=== PATIENT | male | born 1955 | race African-American/Black ===

== ENCOUNTER 2018-07-22 20:55 | Inpatient (IN) | payer MEDICARE, OTHER ==
[~2018-07-22] VITALS: Ht 185.4 cm; Wt 112.5 kg
[2018-07-22] MEDS ORDERED: PIPERACILLIN/TAZ 3.375G PREMIX 50 ML IV ONE (21:30)
[2018-07-22] MEDS ORDERED: LEVOFLOXACIN 750MG PREMIX 150 ML IV ONE (21:30)
[2018-07-22] MEDS ORDERED: ACETAMINOPHEN 650MG SUPP PR ONE (21:30)
[2018-07-22] MEDS ORDERED: VANCOMYCIN 1 G PREMIX 200 ML IV ONE (21:30)
[2018-07-22] MEDS ORDERED: ACETAMINOPHEN 325MG SUPP PR ONE (21:30)
[2018-07-22] MEDS ORDERED: SODIUM CHLORIDE 0.9% 1000ML BAG (SEPSIS BOLUS) IV ONE (21:30)
[2018-07-22 22:23] LABS: CLARITY URINE CLEAR (CLEAR); COLOR URINE DARK YELLOW (YELLOW); KETONES URINE 1+ (NEGATIVE); LEUKOCYTE ESTERASE URINE NEGATIVE (NEGATIVE); NITRITE URINE NEGATIVE (NEGATIVE); OCCULT BLOOD URINE 1+ (NEGATIVE); PROTEIN URINE 3+ (NEGATIVE)
[2018-07-22 23:14] LABS: CHLORIDE 96 mEq/L (98-107)
[2018-07-22 23:19] LABS: ETHANOL BLOOD < 10 mg/dL
[2018-07-23 00:01] LABS: HEMATOCRIT. 27.4 % (42.0-52.0); HEMOGLOBIN. 9.1 g/dL (14.0-18.0); MEAN CORPUSCULAR HEMOGLOBIN 37.1 pg (28.0-32.0); MEAN CORPUSCULAR VOLUME 111.5 fL (80.0-94.0); MEAN PLATELET VOLUME 7.6 fl (7.4-10.4); RED BLOOD CELL COUNT 2.46 mill/uL (4.7-6.1); RED CELL DISTRIBUTION WIDTH 26.3 % (11.6-14.6)
[2018-07-23 00:05] LABS: PLATELET 33 x1000/uL (130-400)
[2018-07-23 00:27] LABS: INR 1.4; PROTHROMBIN TIME 13.6 sec (9.1-11.1)
[2018-07-23] MEDS ORDERED: METHYLPREDNISOLONE SOD SUCC 40 MG/ML VIAL IV SCH ×2 (03:30→13:30)
[2018-07-23] MEDS ORDERED: MAGNESIUM/ALUMINUM HYDROXIDE/SIMETHICONE 30ML UDC PO PRN (03:30)
[2018-07-23] MEDS ORDERED: ONDANSETRON HCL 4MG/2ML INJ IV PRN (03:30)
[2018-07-23] MEDS ORDERED: IPRATROPIUM/ALBUTEROL 0.5-3(2.5)MG/3ML NEB INH PRN (03:30)
[2018-07-23] MEDS ORDERED: GUAIFENESIN 200MG/10ML SUGAR FREE UDC PO PRN (03:30)
[2018-07-23 04:15] LABS: PHOSPHORUS 2.7 mg/dL (2.5-4.9)
[2018-07-23] MEDS ORDERED: VANCOMYCIN 1 G PREMIX 200 ML IV SCH (05:00)
[2018-07-23 05:23] LABS: PLATELET ESTIMATE DECREASED
[2018-07-23] MEDS: SODIUM CHLORIDE 0.9% 1,000 ML IV SCH ×2 (05:31→14:35)
[2018-07-23] MEDS: ACETAMINOPHEN 650MG SUPP PR PRN ×3 (05:32→17:48)
[2018-07-23] MEDS ORDERED: POTASSIUM CHLORIDE INJ 40 MEQ in DEXT 5% WATER 250 ML IV SCH (06:00)
[2018-07-23] MEDS ORDERED: DEXTROSE 50% WATER 50ML SYRINGE IV PRN (13:30)
[2018-07-23 14:00] VITALS: BP 168/80
[2018-07-23] MEDS ORDERED: INSULIN GLARGINE UD 100 UNITS/ML SYR SUBCUT NR (15:00)
[2018-07-23] MEDS ORDERED: LEVOFLOXACIN 500MG PREMIX 100 ML IV SCH (15:30)
[2018-07-23] MEDS ORDERED: MAGNESIUM 4 G PREMIX 100 ML IV NR (15:30)
[2018-07-23 16:00] VITALS: BP 152/63
[2018-07-23] MEDS: IPRATROPIUM/ALBUTEROL 0.5-3(2.5)MG/3ML NEB HHN SCH ×2 (16:00→22:18)
[2018-07-23 16:50] VITALS: BP 146/74
[2018-07-23] MEDS: BLOOD SUGAR DIAGNOSTIC STRIP TEST SCH ×2 (17:29→21:00)
[2018-07-23] MEDS: VANCOMYCIN 1500MG in DEXTROSE 5% WATER 250ML IV SCH (17:48)
[2018-07-23] MEDS: CEFEPIME 2,000 MG in DEXT 5% WATER 100 ML IV SCH (17:48)
[2018-07-23] MEDS: INSULIN LISPRO 100 UNITS/ML SUBCUT SCH ×2 (17:54→23:45)
[2018-07-23 18:00] VITALS: BP 145/79
[2018-07-23] MEDS ORDERED: PIPERACILLIN/TAZ 3.375G PREMIX 50 ML IV SCH (18:00)
[2018-07-23 20:00] VITALS: BP 144/76
[2018-07-23] MEDS: ACETAMINOPHEN 325MG TABLET PO PRN (21:02)
[2018-07-23 22:00] VITALS: BP 140/68
[2018-07-23] MEDS: INSULIN GLARGINE UD 100 UNITS/ML SYR SUBCUT SCH (23:44)
[2018-07-24] VITALS (12 sets, daily range): BP systolic 119–155; BP diastolic 53–75
[2018-07-24] MEDS: SODIUM CHLORIDE 0.9% 1,000 ML IV SCH ×2 (00:04→21:17)
[2018-07-24] MEDS: IPRATROPIUM/ALBUTEROL 0.5-3(2.5)MG/3ML NEB HHN SCH ×6 (00:44→21:36)
[2018-07-24] MEDS: VANCOMYCIN 1500MG in DEXTROSE 5% WATER 250ML IV SCH (04:10)
[2018-07-24] MEDS: CEFEPIME 2,000 MG in DEXT 5% WATER 100 ML IV SCH ×2 (05:09→17:45)
[2018-07-24] MEDS: ACETAMINOPHEN 325MG TABLET PO PRN (05:09)
[2018-07-24 07:14] LABS: CHLORIDE 100 mEq/L (98-107)
[2018-07-24 07:25] LABS: T4 FREE 1.15 ng/dL (0.76-1.46)
[2018-07-24] MEDS: BLOOD SUGAR DIAGNOSTIC STRIP TEST SCH ×4 (07:47→21:17)
[2018-07-24 08:05] LABS: CREATINE KINASE 10422 IU/L (39-308)
[2018-07-24] MEDS: METHYLPREDNISOLONE SOD SUCC 125 MG/2 ML VIAL IV SCH (08:14)
[2018-07-24] MEDS: INSULIN LISPRO 100 UNITS/ML SUBCUT SCH ×4 (08:14→22:33)
[2018-07-24] MEDS: INSULIN GLARGINE UD 100 UNITS/ML SYR SUBCUT SCH ×2 (10:19→22:33)
[2018-07-24] MEDS ORDERED: POTASSIUM CHLORIDE INJ 40 MEQ in DEXT 5% WATER 250 ML IV NR (11:00)
[2018-07-24 11:22] LABS: HEMATOCRIT. 23.7 % (42.0-52.0); MEAN CORPUSCULAR HEMOGLOBIN 36.1 pg (28.0-32.0); MEAN CORPUSCULAR VOLUME 106.8 fL (80.0-94.0); RED BLOOD CELL COUNT 2.21 mill/uL (4.7-6.1); RED CELL DISTRIBUTION WIDTH 26.2 % (11.6-14.6)
[2018-07-24 12:18] LABS: PLATELET ESTIMATE MARKEDLY DECREASED
[2018-07-24] MEDS: VANCOMYCIN 1250MG in DEXTROSE 5% WATER 250ML IV SCH ×2 (16:14→21:16)
[2018-07-24] MEDS: DIPHENHYDRAMINE 50MG/ML VIAL IV PRN (21:39)
[2018-07-25] VITALS (10 sets, daily range): BP systolic 125–175; BP diastolic 54–85
[2018-07-25] MEDS: IPRATROPIUM/ALBUTEROL 0.5-3(2.5)MG/3ML NEB HHN SCH ×6 (00:51→20:14)
[2018-07-25] MEDS: CEFEPIME 2,000 MG in DEXT 5% WATER 100 ML IV SCH ×2 (04:38→17:05)
[2018-07-25] MEDS: VANCOMYCIN 1250MG in DEXTROSE 5% WATER 250ML IV SCH ×3 (05:48→20:54)
[2018-07-25] MEDS: SODIUM CHLORIDE 0.9% 1,000 ML IV SCH (06:57)
[2018-07-25] MEDS: BLOOD SUGAR DIAGNOSTIC STRIP TEST SCH ×4 (07:30→20:14)
[2018-07-25] MEDS: INSULIN LISPRO 100 UNITS/ML SUBCUT SCH ×4 (08:08→21:00)
[2018-07-25] MEDS: METHYLPREDNISOLONE SOD SUCC 125 MG/2 ML VIAL IV SCH (08:08)
[2018-07-25] MEDS ORDERED: IOHEXOL-300 100 ML BOTTLE ONE (10:37)
[2018-07-25] MEDS: INSULIN GLARGINE UD 100 UNITS/ML SYR SUBCUT SCH ×2 (12:21→20:48)
[2018-07-25] MEDS ORDERED: METHYLPREDNISOLONE SOD SUCC 125 MG/2 ML VIAL IV NR (16:30)
[2018-07-25 19:42] LABS: CHLORIDE 100 mEq/L (98-107)
[2018-07-25 20:23] LABS: CREATINE KINASE 12018 IU/L (39-308)
[2018-07-25] MEDS ORDERED: INSULIN LISPRO 100 UNITS/ML SUBCUT NR (20:45)
[2018-07-25] MEDS: DIPHENHYDRAMINE 50MG/ML VIAL IV PRN (20:54)
[2018-07-25] MEDS ORDERED: INSULIN GLARGINE UD 100 UNITS/ML SYR SUBCUT NR (22:00)
[2018-07-26] VITALS (10 sets, daily range): BP systolic 133–180; BP diastolic 61–97
[2018-07-26] MEDS: SODIUM CHLORIDE 0.9% 1,000 ML IV SCH ×2 (02:55→15:16)
[2018-07-26] MEDS: IPRATROPIUM/ALBUTEROL 0.5-3(2.5)MG/3ML NEB HHN SCH ×6 (04:00→20:29)
[2018-07-26] MEDS: DIPHENHYDRAMINE 50MG/ML VIAL IV PRN (04:04)
[2018-07-26] MEDS: CEFEPIME 2,000 MG in DEXT 5% WATER 100 ML IV SCH (06:14)
[2018-07-26] MEDS: VANCOMYCIN 1250MG in DEXTROSE 5% WATER 250ML IV SCH ×2 (06:15→15:16)
[2018-07-26 06:40] LABS: BASOPHILS % 0.5 % (0.0-2.0); LYMPHOCYTES % 8.1 % (20.0-50.0); MEAN CORPUSCULAR HEMOGLOBIN 36.4 pg (28.0-32.0); MEAN CORPUSCULAR VOLUME 107.2 fL (80.0-94.0); MONOCYTES % 12.2 % (2.0-8.0); NEUTROPHILS % 79.2 % (40.0-76.0); RED BLOOD CELL COUNT 1.86 mill/uL (4.7-6.1); RED CELL DISTRIBUTION WIDTH 26.8 % (11.6-14.6)
[2018-07-26 06:51] LABS: CHLORIDE 99 mEq/L (98-107)
[2018-07-26 07:54] LABS: CREATINE KINASE 7058 IU/L (39-308)
[2018-07-26 08:10] LABS: HEMOGLOBIN. 6.8 g/dL (14.0-18.0); PLATELET 16 x1000/uL (130-400)
[2018-07-26 08:13] LABS: NEUTROPHILS % 7.8 % (40.0-76.0)
[2018-07-26] MEDS: BLOOD SUGAR DIAGNOSTIC STRIP TEST SCH ×4 (08:14→21:09)
[2018-07-26 08:18] LABS: PLATELET 14 x1000/uL (130-400)
[2018-07-26 08:54] LABS: PLATELET ESTIMATE MARKEDLY DECREASED
[2018-07-26] MEDS: INSULIN LISPRO 100 UNITS/ML SUBCUT SCH ×4 (08:56→21:16)
[2018-07-26] MEDS: METHYLPREDNISOLONE SOD SUCC 125 MG/2 ML VIAL IV SCH (08:57)
[2018-07-26] MEDS: INSULIN GLARGINE UD 100 UNITS/ML SYR SUBCUT SCH (10:30)
[2018-07-26] MEDS ORDERED: INSULIN GLARGINE UD 100 UNITS/ML SYR SUBCUT SCH ×2 (22:00)
[2018-07-27] VITALS (15 sets, daily range): BP systolic 131–169; BP diastolic 68–96
[2018-07-27] MEDS: IPRATROPIUM/ALBUTEROL 0.5-3(2.5)MG/3ML NEB HHN SCH ×6 (00:27→20:00)
[2018-07-27] MEDS: SODIUM CHLORIDE 0.9% 1,000 ML IV SCH ×3 (00:38→16:42)
[2018-07-27 06:07] LABS: MEAN CORPUSCULAR HEMOGLOBIN 36.9 pg (28.0-32.0); MEAN CORPUSCULAR VOLUME 106.1 fL (80.0-94.0); MEAN PLATELET VOLUME 7.9 fl (7.4-10.4); RED BLOOD CELL COUNT 1.71 mill/uL (4.7-6.1)
[2018-07-27 06:37] LABS: CREATINE KINASE 6323 IU/L (39-308)
[2018-07-27 06:55] LABS: HEMATOCRIT. 18.1 % (42.0-52.0); HEMOGLOBIN. 6.3 g/dL (14.0-18.0); PLATELET 30 x1000/uL (130-400)
[2018-07-27] MEDS: INSULIN LISPRO 100 UNITS/ML SUBCUT SCH ×4 (08:00→21:10)
[2018-07-27] MEDS: BLOOD SUGAR DIAGNOSTIC STRIP TEST SCH ×4 (08:46→21:02)
[2018-07-27] MEDS: METHYLPREDNISOLONE SOD SUCC 125 MG/2 ML VIAL IV SCH (10:25)
[2018-07-27] MEDS: INSULIN GLARGINE UD 100 UNITS/ML SYR SUBCUT SCH (10:26)
[2018-07-27 10:32] LABS: PLATELET ESTIMATE MARKEDLY DECREASED
[2018-07-27 13:48] LABS: TOTAL IRON BINDING CAPACITY 154 ug/dL (250-450)
[2018-07-27] MEDS ORDERED: INSULIN GLARGINE UD 100 UNITS/ML SYR SUBCUT SCH (22:00)
[2018-07-27] MEDS ORDERED: HYDRALAZINE 20MG/ML VIAL IV PRN (22:30)
[2018-07-27] MEDS: AMLODIPINE 10MG TABLET PO SCH (22:52)
[2018-07-27] MEDS: CARVEDILOL 6.25 MG TABLET PO SCH (22:53)
[2018-07-28] VITALS: BP 158/89
[2018-07-28] MEDS: IPRATROPIUM/ALBUTEROL 0.5-3(2.5)MG/3ML NEB HHN SCH ×3 (00:11→08:20)
[2018-07-28] MEDS: SODIUM CHLORIDE 0.9% 1,000 ML IV SCH ×2 (00:21→06:33)
[2018-07-28 02:00] VITALS: BP 162/79
[2018-07-28 04:00] VITALS: BP 147/69
[2018-07-28 06:00] VITALS: BP 126/76
[2018-07-28] MEDS: BLOOD SUGAR DIAGNOSTIC STRIP TEST SCH (07:30)
[2018-07-28 07:59] LABS: MEAN CORPUSCULAR HEMOGLOBIN 36.1 pg (28.0-32.0); MEAN CORPUSCULAR VOLUME 107.3 fL (80.0-94.0); RED BLOOD CELL COUNT 1.65 mill/uL (4.7-6.1)
[2018-07-28] MEDS: INSULIN LISPRO 100 UNITS/ML SUBCUT SCH (08:00)
[2018-07-28 08:12] LABS: HEMATOCRIT 17.7 % (42.0-52.0)
[2018-07-28] MEDS: METHYLPREDNISOLONE SOD SUCC 125 MG/2 ML VIAL IV SCH ×2 (09:00→10:05)
[2018-07-28] MEDS: AMLODIPINE 10MG TABLET PO SCH (10:06)
[2018-07-28] MEDS: CARVEDILOL 6.25 MG TABLET PO SCH (10:07)
[2018-07-28 11:16] LABS: PLATELET 45 x1000/uL (130-400)
[2018-07-28 12:59] VITALS: BP 137/69
[2018-08-02] MEDS ORDERED: TAM75 MT (15:26)
== END 2018-07-28 13:30 | disposition home or self-care (01) | DRG 557 ==
LOC: ER 20:55 → 5EST 07-23 02:16 → EDBEDREQDT 07-23 02:18 → EDBEDREQTM 07-23 02:18 → EDBEDREQ 07-23 02:18 → ENRESERV 07-23 11:38
PROVIDERS: ADMIT Internal Medicine; ATTEND Internal Medicine
DX: M62.82 Rhabdomyolysis (principal); G93.41 Metabolic encephalopathy; E87.1 Hypo-osmolality and hyponatremia; R65.10 Systemic inflammatory response syndrome (SIRS) of non-infectious origin without acute organ dysfunction; L03.90 Cellulitis, unspecified; E87.6 Hypokalemia; D69.6 Thrombocytopenia, unspecified; I10 Essential (primary) hypertension; E11.65 Type 2 diabetes mellitus with hyperglycemia; G89.29 Other chronic pain; M54.5 Low back pain; D46.9 Myelodysplastic syndrome, unspecified; K52.9 Noninfective gastroenteritis and colitis, unspecified; E66.01 Morbid (severe) obesity due to excess calories; F03.90 Unspecified dementia, unspecified severity, without behavioral disturbance, psychotic disturbance, mood disturbance, and anxiety; I25.10 Atherosclerotic heart disease of native coronary artery without angina pectoris; J45.909 Unspecified asthma, uncomplicated; K21.9 Gastro-esophageal reflux disease without esophagitis; Q92.8 Other specified trisomies and partial trisomies of autosomes; Z79.52 Long term (current) use of systemic steroids; Z68.32 Body mass index [BMI] 32.0-32.9, adult
CPT/HCPCS: 36415; 71045; 71250; 73701; 74176; 80048; 80202; 80320; 82550; 82607; 82746; 82962; 83540; 83550; 83605; 83615; 83735; 84100; 84145; 84439; 84443; 84484; 85027; 87015; 87045; 87427; 87449; 87493; 87804; 93005; 93970; 96374; 97162; 97166; 99285; J0692; J1200; J1815; J1956; J2543; J2920; J2930; J3370; J3475; J3480; J7030; J7042; J7060; J7620; Q9967; G0480

== ENCOUNTER 2018-07-31 01:28 | Inpatient (IN) | payer MEDICARE, OTHER ==
[~2018-07-31] VITALS: Ht 182.9 cm; Wt 112.5 kg
[2018-07-31] MEDS ORDERED: IPRATROPIUM/ALBUTEROL 0.5-3(2.5)MG/3ML NEB HHN ONE ×2 (02:00→04:00)
[2018-07-31 02:48] LABS: CHLORIDE 100 mEq/L (98-107)
[2018-07-31 02:50] LABS: INR 1.2; PARTIAL THROMBOPLASTIN TIME 24.6 sec (23.4-31.0); PROTHROMBIN TIME 11.7 sec (9.1-11.1)
[2018-07-31 02:52] LABS: ETHANOL BLOOD < 10 mg/dL
[2018-07-31 02:53] LABS: HEMATOCRIT. 25.9 % (42.0-52.0); HEMOGLOBIN. 8.8 g/dL (14.0-18.0); MEAN CORPUSCULAR HEMOGLOBIN 35.5 pg (28.0-32.0); MEAN CORPUSCULAR VOLUME 104.5 fL (80.0-94.0); MEAN PLATELET VOLUME 6.4 fl (7.4-10.4); PLATELET 168 x1000/uL (130-400); RED BLOOD CELL COUNT 2.48 mill/uL (4.7-6.1); RED CELL DISTRIBUTION WIDTH 25.5 % (11.6-14.6)
[2018-07-31] MEDS ORDERED: METHYLPREDNISOLONE SOD SUCC 125 MG/2 ML VIAL IV STA (03:57)
[2018-07-31] MEDS ORDERED: MAGNESIUM 2 G PREMIX 50 ML IV ONE (04:00)
[2018-07-31] MEDS ORDERED: ASPIRIN 325MG EC TABLET PO ONE (04:00)
[2018-07-31 04:28] LABS: ATYPICAL LYMPHOCYTES 1; PLATELET ESTIMATE NORMAL
[2018-07-31 05:32] LABS: BG BASE EXCESS 5.2 mmol/L (-2.0-2.0); BG CARBOXYHEMOGLOBIN 0.3 % (0.5-1.5); BG FRACTION INSPIRED OXYGEN 32; BG HCO3 ACT 29.1 mmol/L (22.0-26.0); BG OXYHEMOGLOBIN 96.7 % (94.0-97.0); BG PCO2 40.1 mmHg (35.0-45.0); BG PH 7.479 (7.350-7.450); BG PO2 98.8 mmHg (75.0-100.0); BG SAMPLE SITE RIGHT RADIAL; BG VENT MODE NASAL CANNULA
[2018-07-31] MEDS ORDERED: AMLODIPINE 10MG TABLET PO NR (05:45)
[2018-07-31] MEDS ORDERED: ACETAMINOPHEN 325MG TABLET PO NR (05:45)
[2018-07-31 06:13] LABS: CLARITY URINE CLEAR (CLEAR); COLOR URINE YELLOW (YELLOW); KETONES URINE NEGATIVE (NEGATIVE); LEUKOCYTE ESTERASE URINE NEGATIVE (NEGATIVE); NITRITE URINE NEGATIVE (NEGATIVE); OCCULT BLOOD URINE NEGATIVE (NEGATIVE); PROTEIN URINE NEGATIVE (NEGATIVE); SPECIFIC GRAVITY URINE 1.016 (1.005-1.030); UROBILINOGEN URINE 0.2 E.U./dL (0.2-1.0)
[2018-07-31 06:29] LABS: *AMPHETAMINES SCREEN URINE NEGATIVE (NEGATIVE); *BARBITURATES SCREEN URINE NEGATIVE (NEGATIVE); *BENZODIAZEPINES SCREEN URINE NEGATIVE (NEGATIVE); *COCAINE SCREEN URINE NEGATIVE (NEGATIVE); METHADONE URINE SCREEN NEGATIVE (NEGATIVE)
[2018-07-31 06:30] LABS: CANNABINOID URINE SCREEN NEGATIVE (NEGATIVE); OPIATES URINE SCREEN NEGATIVE (NEGATIVE); PHENCYCLIDINE URINE SCREEN NEGATIVE (NEGATIVE)
[2018-07-31 08:00] VITALS: BP 154/77
[2018-07-31 08:30] VITALS: BP 154/77
[2018-07-31] MEDS ORDERED: P20 PO (09:09)
[2018-07-31] MEDS ORDERED: AMLO10TA80 PO (09:09)
[2018-07-31] MEDS ORDERED: COR6 PO (09:14)
[2018-07-31] MEDS ORDERED: PANT40TA4 PO (09:14)
[2018-07-31] MEDS ORDERED: MOME0.24 INH (09:14)
[2018-07-31] MEDS ORDERED: TAMS0.4C31 PO (09:14)
[2018-07-31] MEDS ORDERED: CALC-586 PO (09:15)
[2018-07-31] MEDS ORDERED: POSA100T MT (09:18)
[2018-07-31] MEDS ORDERED: CLONIDINE 0.1MG TABLET PO PRN (09:30)
[2018-07-31] MEDS ORDERED: DIPHENHYDRAMINE 50MG/ML VIAL IV PRN (09:30)
[2018-07-31] MEDS ORDERED: NA PHOS,M-B/NA PHOS,DI-BA ENEMA 118ML PR PRN (09:30)
[2018-07-31] MEDS ORDERED: ONDANSETRON HCL 4MG/2ML INJ IV PRN (09:30)
[2018-07-31] MEDS ORDERED: DOCUSATE SODIUM 100MG CAPSULE PO PRN (09:30)
[2018-07-31] MEDS ORDERED: MAGNESIUM/ALUMINUM HYDROXIDE/SIMETHICONE 30ML UDC PO PRN (09:30)
[2018-07-31] MEDS ORDERED: DEXTROSE 50% WATER 50ML SYRINGE IV PRN (09:30)
[2018-07-31] MEDS ORDERED: ACETAMINOPHEN 650MG/20.3ML UDC GT PRN (09:30)
[2018-07-31] MEDS ORDERED: ACETAMINOPHEN 650MG SUPP PR PRN (09:30)
[2018-07-31] MEDS ORDERED: ACETAMINOPHEN 325MG TABLET PO PRN (09:30)
[2018-07-31] MEDS ORDERED: GUAIFENESIN 200MG/10ML SUGAR FREE UDC PO PRN (09:30)
[2018-07-31] MEDS ORDERED: HYDROCODONE/ACETAMINOPHEN 5/325MG TABLET PO PRN (09:30)
[2018-07-31] MEDS: IPRATROPIUM/ALBUTEROL 0.5-3(2.5)MG/3ML NEB INH PRN ×2 (11:42→16:07)
[2018-07-31 12:00] VITALS: BP 142/65
[2018-07-31] MEDS: IPRATROPIUM/ALBUTEROL 0.5-3(2.5)MG/3ML NEB INH SCH (12:00)
[2018-07-31 12:05] LABS: BG BASE EXCESS 3.6 mmol/L (-2.0-2.0); BG CARBOXYHEMOGLOBIN 0.3 % (0.5-1.5); BG DEOXYHEMOGLOBIN 4.1 % (0.0-5.0); BG HCO3 ACT 27.6 mmol/L (22.0-26.0); BG METHEMOGLOBIN 0.7 % (0.0-1.5); BG OXYGEN SATURATION 95.9 % (92.0-98.5); BG OXYHEMOGLOBIN 94.9 % (94.0-97.0); BG PCO2 39.1 mmHg (35.0-45.0); BG PH 7.466 (7.350-7.450); BG PO2 90.8 mmHg (75.0-100.0); BG SAMPLE SITE RIGHT RADIAL; BG TOTAL HEMOGLOBIN 7.5 g/dL (12.0-18.0); BG VENT MODE NASAL CANNULA
[2018-07-31] MEDS ORDERED: INSULIN LISPRO 100 UNITS/ML SUBCUT SCH ×2 (12:15→17:15)
[2018-07-31] MEDS: BLOOD SUGAR DIAGNOSTIC STRIP TEST SCH ×3 (12:30→21:13)
[2018-07-31] MEDS: CEFTRIAXONE 1 G PREMIX 50 ML IV SCH (12:50)
[2018-07-31] MEDS: INSULIN LISPRO 100 UNITS/ML SUBCUT SCH ×3 (12:51→21:12)
[2018-07-31] MEDS: SODIUM CHLORIDE 0.9% INJ 3ML FLUSH IVF SCH ×2 (14:00→21:12)
[2018-07-31 15:41] LABS: CLARITY URINE CLEAR (CLEAR); COLOR URINE YELLOW (YELLOW); KETONES URINE NEGATIVE (NEGATIVE); LEUKOCYTE ESTERASE URINE NEGATIVE (NEGATIVE); NITRITE URINE NEGATIVE (NEGATIVE); OCCULT BLOOD URINE TRACE (NEGATIVE); PH URINE 6.5 (4.5-8.0); PROTEIN URINE NEGATIVE (NEGATIVE); SPECIFIC GRAVITY URINE 1.017 (1.005-1.030); UROBILINOGEN URINE 0.2 E.U./dL (0.2-1.0)
[2018-07-31] MEDS: PANTOPRAZOLE 40MG DR TABLET PO SCH (15:57)
[2018-07-31] MEDS: METHYLPREDNISOLONE SOD SUCC 40 MG/ML VIAL IV SCH ×2 (15:57→21:12)
[2018-07-31 16:00] VITALS: BP 137/69
[2018-07-31 16:01] LABS: *AMPHETAMINES SCREEN URINE NEGATIVE (NEGATIVE); *BARBITURATES SCREEN URINE NEGATIVE (NEGATIVE); *BENZODIAZEPINES SCREEN URINE NEGATIVE (NEGATIVE); *COCAINE SCREEN URINE NEGATIVE (NEGATIVE)
[2018-07-31 16:03] LABS: CANNABINOID URINE SCREEN NEGATIVE (NEGATIVE); METHADONE URINE SCREEN NEGATIVE (NEGATIVE); OPIATES URINE SCREEN NEGATIVE (NEGATIVE); PHENCYCLIDINE URINE SCREEN NEGATIVE (NEGATIVE)
[2018-07-31] MEDS ORDERED: MEDICATION NOT ON FORMULARY EA (Pantoprazole Sodium 40 MG) PO SCH (16:45)
[2018-07-31 17:18] LABS: CREATINE KINASE MB FRACTION 1.4 ng/mL (0.5-3.6)
[2018-07-31] MEDS: OSELTAMIVIR 75MG CAPSULE PO SCH ×2 (17:57→21:12)
[2018-07-31] MEDS: CARVEDILOL 6.25 MG TABLET PO SCH (17:57)
[2018-07-31] MEDS: POSACONAZOLE 100 MG TABLET PO SCH (17:57)
[2018-07-31] MEDS: TAMSULOSIN HCL 0.4MG SR CAPSULE PO SCH (18:02)
[2018-07-31 20:00] VITALS: BP 142/73
[2018-07-31] MEDS ORDERED: POTASSIUM CHLORIDE 20MEQ TABLET SR PO NR (22:00)
[2018-08-01] VITALS: BP 137/64
[2018-08-01] MEDS: IPRATROPIUM/ALBUTEROL 0.5-3(2.5)MG/3ML NEB INH SCH ×5 (02:05→23:59)
[2018-08-01 04:00] VITALS: BP 156/77
[2018-08-01] MEDS: METHYLPREDNISOLONE SOD SUCC 40 MG/ML VIAL IV SCH ×4 (06:26→21:10)
[2018-08-01] MEDS: PANTOPRAZOLE 40MG DR TABLET PO SCH ×2 (06:26→17:36)
[2018-08-01] MEDS: INSULIN LISPRO 100 UNITS/ML SUBCUT SCH ×4 (06:27→21:11)
[2018-08-01] MEDS: SODIUM CHLORIDE 0.9% INJ 3ML FLUSH IVF SCH ×3 (06:27→21:11)
[2018-08-01] MEDS: BLOOD SUGAR DIAGNOSTIC STRIP TEST SCH ×4 (06:27→21:11)
[2018-08-01] MEDS: OSELTAMIVIR 75MG CAPSULE PO SCH ×2 (08:35→21:10)
[2018-08-01] MEDS: CARVEDILOL 6.25 MG TABLET PO SCH ×2 (08:35→17:39)
[2018-08-01] MEDS: PREDNISONE 20MG TABLET PO SCH (08:35)
[2018-08-01] MEDS: AMLODIPINE 10MG TABLET PO SCH (08:36)
[2018-08-01] MEDS: CEFTRIAXONE 1 G PREMIX 50 ML IV SCH (11:00)
[2018-08-01 12:00] VITALS: BP 149/70
[2018-08-01 16:00] VITALS: BP 124/66
[2018-08-01] MEDS: POSACONAZOLE 100 MG TABLET PO SCH (17:39)
[2018-08-01] MEDS: TAMSULOSIN HCL 0.4MG SR CAPSULE PO SCH (17:40)
[2018-08-01 20:00] VITALS: BP 115/63
[2018-08-02] VITALS (8 sets, daily range): BP systolic 103–152; BP diastolic 53–78
[2018-08-02] MEDS: IPRATROPIUM/ALBUTEROL 0.5-3(2.5)MG/3ML NEB INH SCH ×3 (03:41→15:02)
[2018-08-02] MEDS: METHYLPREDNISOLONE SOD SUCC 40 MG/ML VIAL IV SCH (06:30)
[2018-08-02] MEDS: PANTOPRAZOLE 40MG DR TABLET PO SCH ×2 (06:30→17:42)
[2018-08-02] MEDS: SODIUM CHLORIDE 0.9% INJ 3ML FLUSH IVF SCH ×2 (06:30→14:00)
[2018-08-02] MEDS: BLOOD SUGAR DIAGNOSTIC STRIP TEST SCH ×3 (06:30→16:45)
[2018-08-02] MEDS: INSULIN LISPRO 100 UNITS/ML SUBCUT SCH ×3 (06:31→17:15)
[2018-08-02] MEDS: CARVEDILOL 6.25 MG TABLET PO SCH ×2 (09:07→17:00)
[2018-08-02] MEDS: AMLODIPINE 10MG TABLET PO SCH (09:07)
[2018-08-02] MEDS: PREDNISONE 20MG TABLET PO SCH (09:08)
[2018-08-02] MEDS: OSELTAMIVIR 75MG CAPSULE PO SCH (09:08)
[2018-08-02] MEDS ORDERED: BUDESONIDE 0.5MG/2ML NEB HHN SCH (12:00)
[2018-08-02] MEDS ORDERED: LORATADINE 10MG TABLET PO SCH (12:00)
[2018-08-02] MEDS: CEFTRIAXONE 1 G PREMIX 50 ML IV SCH (13:42)
[2018-08-02] MEDS ORDERED: TAM75 MT (15:26)
[2018-08-02] MEDS: POSACONAZOLE 100 MG TABLET PO SCH (17:00)
[2018-08-02] MEDS: TAMSULOSIN HCL 0.4MG SR CAPSULE PO SCH (18:17)
== END 2018-08-02 20:13 | disposition home health service (06) | DRG 193 ==
LOC: ER 01:28 → 5WST 04:10 → EDBEDREQ 04:13 → EDBEDREQTM 04:13 → ENRESERV 08:00
PROVIDERS: ADMIT Family Medicine; ATTEND Family Medicine
DX: J10.1 Influenza due to other identified influenza virus with other respiratory manifestations (principal); J96.00 Acute respiratory failure, unspecified whether with hypoxia or hypercapnia; E87.2 Acidosis; C94.6 Myelodysplastic disease, not elsewhere classified; R65.10 Systemic inflammatory response syndrome (SIRS) of non-infectious origin without acute organ dysfunction; E11.65 Type 2 diabetes mellitus with hyperglycemia; E87.6 Hypokalemia; N40.0 Benign prostatic hyperplasia without lower urinary tract symptoms; I11.9 Hypertensive heart disease without heart failure; E66.9 Obesity, unspecified; J44.9 Chronic obstructive pulmonary disease, unspecified; Q92.8 Other specified trisomies and partial trisomies of autosomes; Z68.33 Body mass index [BMI] 33.0-33.9, adult
CPT/HCPCS: 36415; 36430; 36600; 71045; 80305; 80320; 82375; 82550; 82553; 82805; 82962; 83605; 83880; 84484; 86850; 86870; 86880; 86900; 86905; 86906; 86971; 87804; 93005; 93970; 94640; 96365; 96375; 99285; J0696; J1815; J2920; J2930; J3475; J7040; J7512; J7620; G0480

== ENCOUNTER 2020-01-29 01:40 | Inpatient (IN) | payer MEDICARE, OTHER ==
[~2020-01-29] VITALS: Ht 182.9 cm; Wt 108.0 kg
[2020-01-29] VITALS (34 sets, daily range): BP systolic 116–185; BP diastolic 49–112
[~2020-01-29 01:40] MED LIST: AMLO10TA80 PO; CALC-586 PO; COR6 PO; MOME0.24 INH; P20 PO; PANT40TA4 PO; POSA100T MT; TAM75 MT; TAMS0.4C31 PO
[2020-01-29] MEDS ORDERED: SODIUM CHLORIDE 0.9% 1000ML BAG (SEPSIS BOLUS) IV ONE (02:00)
[2020-01-29] MEDS ORDERED: IBUPROFEN 600MG TABLET PO ONE (02:15)
[2020-01-29] MEDS ORDERED: PIPERACILLIN/TAZOBACTAM 3.375GM/50ML PREMIX IV ONE (04:00)
[2020-01-29] MEDS ORDERED: VANCOMYCIN 1 G PREMIX 200 ML IV SCH (04:00)
[2020-01-29 04:05] LABS: HEMATOCRIT. 40.9 % (42.0-52.0); HEMOGLOBIN. 13.4 g/dL (14.0-18.0); MEAN CORPUSCULAR HEMOGLOBIN 39.2 pg (28.0-32.0); MEAN CORPUSCULAR VOLUME 119.7 fL (80.0-94.0); MEAN PLATELET VOLUME 6.1 fl (7.4-10.4); RED BLOOD CELL COUNT 3.42 mill/uL (4.7-6.1); RED CELL DISTRIBUTION WIDTH 17.5 % (11.6-14.6)
[2020-01-29 04:10] LABS: CHLORIDE 97 mEq/L (98-107)
[2020-01-29 04:13] LABS: PLATELET 47 x1000/uL (130-400)
[2020-01-29 04:14] LABS: ETHANOL BLOOD < 10 mg/dL
[2020-01-29] MEDS ORDERED: PIPERACILLIN/TAZ 3.375G PREMIX 50 ML IV NR (04:15)
[2020-01-29 04:20] LABS: BETA HYDROXYBUTYRATE 1.1 mMol/L (0.0-0.3); CREATINE KINASE 463 IU/L (39-308)
[2020-01-29] MEDS ORDERED: ASPIRIN 325MG EC TABLET PO NR (04:30)
[2020-01-29 04:33] LABS: D-DIMER 6.42 mg/L FEU (<0.50); INR 1.2
[2020-01-29 04:34] LABS: CLARITY URINE CLOUDY (CLEAR); COLOR URINE DK YELLOW (YELLOW); KETONES URINE 1+ (NEGATIVE); LEUKOCYTE ESTERASE URINE NEGATIVE (NEGATIVE); NITRITE URINE NEGATIVE (NEGATIVE); OCCULT BLOOD URINE TRACE (NEGATIVE); PH URINE 5.5 (4.5-8.0); PROTEIN URINE 3+ (NEGATIVE); UROBILINOGEN URINE 0.2 E.U./dL (0.2-1.0)
[2020-01-29] MEDS ORDERED: ACETAMINOPHEN 500MG TABLET PO ONE (04:45)
[2020-01-29 04:51] LABS: *AMPHETAMINES SCREEN URINE NEGATIVE (NEGATIVE); *BARBITURATES SCREEN URINE NEGATIVE (NEGATIVE); *BENZODIAZEPINES SCREEN URINE NEGATIVE (NEGATIVE); *COCAINE SCREEN URINE NEGATIVE (NEGATIVE); CANNABINOID URINE SCREEN NEGATIVE (NEGATIVE); METHADONE URINE SCREEN NEGATIVE (NEGATIVE); OPIATES URINE SCREEN PRESUMTIVE POSITIVE (NEGATIVE); PHENCYCLIDINE URINE SCREEN NEGATIVE (NEGATIVE)
[2020-01-29] MEDS ORDERED: ACETAMINOPHEN 650MG SUPP PR ONE (05:00)
[2020-01-29 05:23] LABS: NUCLEATED RED BLOOD CELLS 1 /100 WBC
[2020-01-29 05:24] LABS: PLATELET ESTIMATE DECREASED
[2020-01-29] MEDS ORDERED: IOHEXOL-300 100 ML BOTTLE ONE (05:56)
[2020-01-29] MEDS ORDERED: ASPIRIN 300MG SUPP PR ONE (06:30)
[2020-01-29] MEDS: CARVEDILOL 12.5MG TABLET PO SCH ×2 (11:20→21:00)
[2020-01-29] MEDS: SODIUM CHLORIDE 0.9% 1,000 ML IV SCH (11:21)
[2020-01-29 11:25] LABS: BG BASE EXCESS -2.3 mmol/L (-2.0-2.0); BG CARBOXYHEMOGLOBIN 0.8 % (0.5-1.5); BG DEOXYHEMOGLOBIN 2.4 % (0.0-5.0); BG FRACTION INSPIRED OXYGEN 32; BG HCO3 ACT 21.4 mmol/L (22.0-26.0); BG METHEMOGLOBIN 0.5 % (0.0-1.5); BG OXYGEN SATURATION 97.6 % (92.0-98.5); BG OXYHEMOGLOBIN 96.3 % (94.0-97.0); BG PCO2 33.6 mmHg (35.0-45.0); BG PH 7.422 (7.350-7.450); BG PO2 103.2 mmHg (75.0-100.0); BG SAMPLE SITE LEFT RADIAL; BG TOTAL HEMOGLOBIN 12.6 g/dL (12.0-18.0); BG VENT MODE NASAL CANNULA
[2020-01-29] MEDS ORDERED: LIDOCAINE HCL 1% 20ML VIAL (Pyxis) INJ ONE (11:26)
[2020-01-29] MEDS ORDERED: POTASSIUM CHLORIDE INJ 40 MEQ in DEXT 5% WATER 250 ML IV SCH (12:00)
[2020-01-29] MEDS: LEVOFLOXACIN 500MG PREMIX 100 ML IV SCH (12:14)
[2020-01-29] MEDS: ACETAMINOPHEN 325MG TABLET PO PRN ×2 (12:45→22:46)
[2020-01-29] MEDS: METRONIDAZOLE 500 MG PREMIX 100 ML IV SCH ×2 (15:47→22:47)
[2020-01-29] MEDS: PREDNISONE 20MG TABLET PO SCH (15:48)
[2020-01-29] MEDS: VANCOMYCIN 2,000 MG in DEXT 5% WATER 500 ML IV SCH (18:27)
[2020-01-29] MEDS: PANTOPRAZOLE 40MG DR TABLET PO SCH (18:27)
[2020-01-29] MEDS: TAMSULOSIN HCL 0.4MG SR CAPSULE PO SCH (18:28)
[2020-01-30] VITALS (33 sets, daily range): BP systolic 95–148; BP diastolic 62–83
[2020-01-30] MEDS: SODIUM CHLORIDE 0.9% 1,000 ML IV SCH (03:40)
[2020-01-30] MEDS: METRONIDAZOLE 500 MG PREMIX 100 ML IV SCH ×4 (05:05→21:15)
[2020-01-30] MEDS: PANTOPRAZOLE 40MG DR TABLET PO SCH ×3 (07:59→18:38)
[2020-01-30] MEDS ORDERED: DEXTROSE 50% WATER 50ML SYRINGE IV PRN (08:15)
[2020-01-30] MEDS: PREDNISONE 20MG TABLET PO SCH (09:00)
[2020-01-30] MEDS: CARVEDILOL 12.5MG TABLET PO SCH ×2 (09:08→21:14)
[2020-01-30] MEDS: BLOOD SUGAR DIAGNOSTIC STRIP TEST SCH ×5 (09:22→21:03)
[2020-01-30] MEDS: INSULIN LISPRO 100 UNITS/ML SUBCUT SCH ×5 (09:59→21:00)
[2020-01-30] MEDS: LEVOFLOXACIN 500MG PREMIX 100 ML IV SCH (10:00)
[2020-01-30 11:30] LABS: HEMATOCRIT. 32.7 % (42.0-52.0); HEMOGLOBIN. 11.2 g/dL (14.0-18.0); MEAN CORPUSCULAR HEMOGLOBIN 39.7 pg (28.0-32.0); MEAN CORPUSCULAR VOLUME 116.3 fL (80.0-94.0); RED BLOOD CELL COUNT 2.82 mill/uL (4.7-6.1); RED CELL DISTRIBUTION WIDTH 17.3 % (11.6-14.6)
[2020-01-30] MEDS ORDERED: BLOOD SUGAR DIAGNOSTIC STRIP TEST SCH (11:30)
[2020-01-30 11:51] LABS: CHLORIDE 104 mEq/L (98-107)
[2020-01-30] MEDS ORDERED: INSULIN LISPRO 100 UNITS/ML SUBCUT SCH (12:00)
[2020-01-30] MEDS: VANCOMYCIN 2,000 MG in DEXT 5% WATER 500 ML IV SCH (12:30)
[2020-01-30] MEDS: ACETAMINOPHEN 325MG TABLET PO PRN (12:30)
[2020-01-30 12:44] LABS: PLATELET ESTIMATE MARKEDLY DECREASED
[2020-01-30 12:47] LABS: PLATELET 28 x1000/uL (130-400)
[2020-01-30 12:48] LABS: MEAN PLATELET VOLUME 6.9 fl (7.4-10.4)
[2020-01-30] MEDS: ALBUTEROL 6.7GM HFA INHALER ORI SCH ×2 (16:45→22:45)
[2020-01-30] MEDS: TAMSULOSIN HCL 0.4MG SR CAPSULE PO SCH (18:32)
[2020-01-30] MEDS ORDERED: PREDNISONE 10MG TABLET PO ONE (21:00)
[2020-01-31] VITALS (7 sets, daily range): BP systolic 141–170; BP diastolic 77–89
[2020-01-31] MEDS: ALBUTEROL 6.7GM HFA INHALER ORI SCH ×3 (04:45→17:05)
[2020-01-31] MEDS: METRONIDAZOLE 500 MG PREMIX 100 ML IV SCH ×3 (05:05→23:28)
[2020-01-31] MEDS: VANCOMYCIN 2,000 MG in DEXT 5% WATER 500 ML IV SCH (05:21)
[2020-01-31] MEDS: PANTOPRAZOLE 40MG DR TABLET PO SCH ×2 (06:44→17:27)
[2020-01-31] MEDS: BLOOD SUGAR DIAGNOSTIC STRIP TEST SCH ×4 (07:40→21:00)
[2020-01-31] MEDS: PREDNISONE 10MG TABLET PO SCH (08:49)
[2020-01-31] MEDS: CARVEDILOL 12.5MG TABLET PO SCH (08:50)
[2020-01-31] MEDS: INSULIN LISPRO 100 UNITS/ML SUBCUT SCH ×4 (08:52→23:27)
[2020-01-31] MEDS: LEVOFLOXACIN 500MG PREMIX 100 ML IV SCH (10:32)
[2020-01-31 12:50] LABS: HEMATOCRIT. 29.1 % (42.0-52.0); HEMOGLOBIN. 9.9 g/dL (14.0-18.0); MEAN CORPUSCULAR HEMOGLOBIN 39.4 pg (28.0-32.0); MEAN CORPUSCULAR VOLUME 115.9 fL (80.0-94.0); MEAN PLATELET VOLUME 7.5 fl (7.4-10.4); RED BLOOD CELL COUNT 2.51 mill/uL (4.7-6.1); RED CELL DISTRIBUTION WIDTH 16.8 % (11.6-14.6)
[2020-01-31 13:00] LABS: CHLORIDE 101 mEq/L (98-107)
[2020-01-31] MEDS: ACETAMINOPHEN 325MG TABLET PO PRN (13:00)
[2020-01-31] MEDS: GLIPIZIDE XL 2.5MG TABLET PO SCH (13:58)
[2020-01-31 14:18] LABS: PLATELET ESTIMATE MARKEDLY DECREASED
[2020-01-31 14:19] LABS: PLATELET 28 x1000/uL (130-400)
[2020-01-31] MEDS: TAMSULOSIN HCL 0.4MG SR CAPSULE PO SCH (17:27)
[2020-01-31] MEDS: CARVEDILOL 6.25 MG TABLET PO SCH (22:46)
[2020-02-01 00:27] VITALS: BP 158/81
[2020-02-01] MEDS: ALBUTEROL (0.083%) 2.5MG/3ML NEB HHN SCH ×4 (00:47→21:00)
[2020-02-01 04:07] LABS: HIV SCREEN 4G Non Reactive (Non Reactive)
[2020-02-01 04:46] VITALS: BP 152/79
[2020-02-01] MEDS: METRONIDAZOLE 500MG TABLET PO SCH ×3 (06:37→21:09)
[2020-02-01] MEDS: BLOOD SUGAR DIAGNOSTIC STRIP TEST SCH ×4 (07:20→21:09)
[2020-02-01] MEDS: INSULIN LISPRO 100 UNITS/ML SUBCUT SCH ×5 (07:41→21:23)
[2020-02-01 08:25] VITALS: BP 124/74
[2020-02-01] MEDS: GLIPIZIDE XL 2.5MG TABLET PO SCH (08:56)
[2020-02-01] MEDS: PANTOPRAZOLE 40MG DR TABLET PO SCH ×2 (08:56→16:58)
[2020-02-01] MEDS: PREDNISONE 10MG TABLET PO SCH (08:56)
[2020-02-01] MEDS: CARVEDILOL 6.25 MG TABLET PO SCH ×2 (08:58→21:09)
[2020-02-01] MEDS: LEVOFLOXACIN 500MG TABLET PO SCH (10:38)
[2020-02-01 10:53] LABS: HEMATOCRIT. 29.7 % (42.0-52.0); HEMOGLOBIN. 10.2 g/dL (14.0-18.0); MEAN CORPUSCULAR HEMOGLOBIN 39.9 pg (28.0-32.0); MEAN CORPUSCULAR VOLUME 116.1 fL (80.0-94.0); MEAN PLATELET VOLUME 7.3 fl (7.4-10.4); RED BLOOD CELL COUNT 2.55 mill/uL (4.7-6.1); RED CELL DISTRIBUTION WIDTH 16.8 % (11.6-14.6)
[2020-02-01 11:02] LABS: CHLORIDE 101 mEq/L (98-107)
[2020-02-01 11:12] LABS: PLATELET 48 x1000/uL (130-400)
[2020-02-01] MEDS ORDERED: POTASSIUM CHLORIDE 20MEQ TABLET SR PO NR (11:30)
[2020-02-01 12:19] VITALS: BP 138/72
[2020-02-01] MEDS ORDERED: PRED10TA PO (12:41)
[2020-02-01 13:28] LABS: PLATELET ESTIMATE MARKEDLY DECREASED
[2020-02-01 16:17] VITALS: BP 130/74
[2020-02-01] MEDS: TAMSULOSIN HCL 0.4MG SR CAPSULE PO SCH (16:58)
[2020-02-01 20:30] VITALS: BP 154/85
[2020-02-02 00:21] VITALS: BP 154/80
[2020-02-02] MEDS: ALBUTEROL (0.083%) 2.5MG/3ML NEB HHN SCH ×3 (02:47→14:29)
[2020-02-02 04:00] VITALS: BP 151/88
[2020-02-02] MEDS: METRONIDAZOLE 500MG TABLET PO SCH ×2 (06:56→14:05)
[2020-02-02] MEDS: GLIPIZIDE XL 2.5MG TABLET PO SCH (06:56)
[2020-02-02] MEDS: PANTOPRAZOLE 40MG DR TABLET PO SCH (06:56)
[2020-02-02] MEDS: INSULIN LISPRO 100 UNITS/ML SUBCUT SCH ×2 (06:57→11:59)
[2020-02-02] MEDS: BLOOD SUGAR DIAGNOSTIC STRIP TEST SCH ×2 (06:57→11:52)
[2020-02-02 08:00] VITALS: BP 128/80
[2020-02-02] MEDS: PREDNISONE 10MG TABLET PO SCH (08:08)
[2020-02-02] MEDS: LEVOFLOXACIN 500MG TABLET PO SCH (08:08)
[2020-02-02] MEDS: CARVEDILOL 6.25 MG TABLET PO SCH (08:08)
[2020-02-02 08:12] VITALS: BP 160/74
[2020-02-02] MEDS ORDERED: ALBU05 NEB (11:06)
[2020-02-02] MEDS ORDERED: LEVO500T2 MT (11:06)
[2020-02-02 12:28] VITALS: BP 136/68
[2020-02-02 14:47] VITALS: BP 128/72
[2020-02-02 15:13] LABS: CHLORIDE 98 mEq/L (98-107)
[2020-02-02 15:14] LABS: HEMATOCRIT. 29.5 % (42.0-52.0); MEAN CORPUSCULAR HEMOGLOBIN 40.2 pg (28.0-32.0); PLATELET 70 x1000/uL (130-400); RED BLOOD CELL COUNT 2.48 mill/uL (4.7-6.1); RED CELL DISTRIBUTION WIDTH 16.8 % (11.6-14.6)
[2020-02-02 16:11] LABS: PLATELET ESTIMATE DECREASED
== END 2020-02-02 16:10 | disposition home or self-care (01) | DRG 871 ==
LOC: ER 01:40 → MICUSO 04:26 → EDBEDREQ 04:30 → EDBEDREQSVC 04:30 → ENRESERV 07:23 → 7WST 01-30 17:28 → 6WST 01-31 18:40
PROVIDERS: ADMIT Family Medicine; ATTEND Family Medicine
PROC: 05HY33Z Insertion of Infusion Device into Upper Vein, Percutaneous Approach (ICD-10-PCS; principal; 2020-01-29)
PROC: B54MZZA Ultrasonography of Right Upper Extremity Veins, Guidance (ICD-10-PCS; 2020-01-29)
DX: A41.9 Sepsis, unspecified organism (principal); G93.41 Metabolic encephalopathy; J96.00 Acute respiratory failure, unspecified whether with hypoxia or hypercapnia; D68.59 Other primary thrombophilia; E44.0 Moderate protein-calorie malnutrition; E87.1 Hypo-osmolality and hyponatremia; E87.2 Acidosis; I47.1 Supraventricular tachycardia; M62.82 Rhabdomyolysis; D61.9 Aplastic anemia, unspecified; D46.9 Myelodysplastic syndrome, unspecified; D69.6 Thrombocytopenia, unspecified; E11.65 Type 2 diabetes mellitus with hyperglycemia; E87.6 Hypokalemia; J44.9 Chronic obstructive pulmonary disease, unspecified; I10 Essential (primary) hypertension; R65.20 Severe sepsis without septic shock; E11.51 Type 2 diabetes mellitus with diabetic peripheral angiopathy without gangrene; E66.9 Obesity, unspecified; N40.0 Benign prostatic hyperplasia without lower urinary tract symptoms; E87.70 Fluid overload, unspecified; Z20.828 Contact with and (suspected) exposure to other viral communicable diseases; F03.90 Unspecified dementia, unspecified severity, without behavioral disturbance, psychotic disturbance, mood disturbance, and anxiety; H54.8 Legal blindness, as defined in USA; K21.9 Gastro-esophageal reflux disease without esophagitis; Z87.891 Personal history of nicotine dependence; Z85.46 Personal history of malignant neoplasm of prostate; N48.9 Disorder of penis, unspecified; B34.9 Viral infection, unspecified
CPT/HCPCS: 36415; 36600; 71045; 74177; 76937; 80048; 80053; 80305; 80320; 81003; 82010; 82375; 82550; 82805; 82962; 83036; 83605; 83615; 83880; 84145; 84153; 84484; 85025; 85379; 85384; 86140; 86592; 86850; 86870; 86900; 87389; 87426; 87493; 87635; 87804; 92610; 93005; 93970; 94640; 96365; 97116; 97162; 97166; 97530; 97535; 99291; C1725; J1815; J1956; J2543; J3370; J3480; J3490; J7030; J7060; J7512; Q9967; G0103; G0480

== ENCOUNTER 2020-10-29 18:49 | Inpatient (IN) | payer MEDICARE, OTHER ==
[~2020-10-29] VITALS: Ht 175.3 cm; Wt 119.4 kg
[~2020-10-29 18:49] MED LIST changes: +ALBU05 NEB; +LEVO500T2 MT; -P20 PO; -PANT40TA4 PO; +PANT40TA51 PO; -POSA100T MT; +PRED10TA PO
[2020-10-29] MEDS ORDERED: HYDROCODONE/APAP 7.5/325MG 1 TAB TABLET PO ONE (19:45)
[2020-10-29] MEDS ORDERED: METHOCARBAMOL 500MG TABLET PO ONE (20:00)
[2020-10-29 21:50] LABS: HEMATOCRIT. 32.4 % (42.0-52.0); HEMOGLOBIN. 11.4 g/dL (14.0-18.0); MEAN CORPUSCULAR HEMOGLOBIN 40.2 pg (28.0-32.0); MEAN CORPUSCULAR VOLUME 114.2 fL (80.0-94.0); MEAN PLATELET VOLUME 5.7 fl (7.4-10.4); PLATELET 99 x1000/uL (130-400); RED BLOOD CELL COUNT 2.84 mill/uL (4.7-6.1); RED CELL DISTRIBUTION WIDTH 18.5 % (11.6-14.6)
[2020-10-29 21:52] LABS: CHLORIDE 103 mEq/L (98-107)
[2020-10-29 21:55] LABS: PROTHROMBIN TIME 11.1 sec (9.6-11.0)
[2020-10-29 22:10] LABS: PLATELET ESTIMATE DECREASED
[2020-10-29] MEDS ORDERED: MORPHINE SULFATE 4 MG/ML CPJ (NOT FOR IM USE) IV ONE (22:30)
[2020-10-30 03:44] LABS: CLARITY URINE CLEAR (CLEAR); COLOR URINE YELLOW (YELLOW); KETONES URINE 1+ (NEGATIVE); LEUKOCYTE ESTERASE URINE NEGATIVE (NEGATIVE); NITRITE URINE NEGATIVE (NEGATIVE); OCCULT BLOOD URINE NEGATIVE (NEGATIVE); PROTEIN URINE TRACE (NEGATIVE); UROBILINOGEN URINE 0.2 E.U./dL (0.2-1.0)
[2020-10-30] MEDS ORDERED: MORPHINE SULFATE 2 MG/ML CPJ (NOT FOR IM USE) IV PRN (09:30)
[2020-10-30] MEDS ORDERED: AMLODIPINE 10MG TABLET PO SCH (09:45)
[2020-10-30] MEDS ORDERED: DEXTROSE 50% WATER 50ML SYRINGE IV PRN (09:45)
[2020-10-30] MEDS ORDERED: ONDANSETRON HCL 4MG/2ML INJ IV PRN (09:45)
[2020-10-30 10:40] VITALS: BP 157/93
[2020-10-30] MEDS: BLOOD SUGAR DIAGNOSTIC STRIP TEST SCH ×3 (12:20→20:57)
[2020-10-30] MEDS: HYDROCODONE/ACETAMINOPHEN 10/325MG TABLET PO PRN ×2 (13:58→21:17)
[2020-10-30] MEDS: INSULIN LISPRO 100 UNITS/ML SUBCUT SCH ×3 (14:10→21:19)
[2020-10-30] MEDS ORDERED: IPRATROPIUM/ALBUTEROL 0.5-3(2.5)MG/3ML NEB HHN PRN (17:15)
[2020-10-30] MEDS: MORPHINE SULFATE 4 MG/ML CPJ (NOT FOR IM USE) IV PRN (18:21)
[2020-10-30] MEDS ORDERED: CARVEDILOL 12.5MG TABLET PO SCH (21:00)
[2020-10-30 21:23] VITALS: BP 150/74
[2020-10-31] VITALS: BP 144/68
[2020-10-31] MEDS: MORPHINE SULFATE 4 MG/ML CPJ (NOT FOR IM USE) IV PRN ×4 (00:45→20:10)
[2020-10-31 04:00] VITALS: BP 160/69
[2020-10-31] MEDS: BLOOD SUGAR DIAGNOSTIC STRIP TEST SCH ×4 (07:18→21:02)
[2020-10-31] MEDS: INSULIN LISPRO 100 UNITS/ML SUBCUT SCH ×4 (07:50→21:00)
[2020-10-31 07:52] LABS: HEMATOCRIT. 32.4 % (42.0-52.0); HEMOGLOBIN. 11.5 g/dL (14.0-18.0); MEAN CORPUSCULAR HEMOGLOBIN 40.5 pg (28.0-32.0); MEAN CORPUSCULAR VOLUME 114.4 fL (80.0-94.0); MEAN PLATELET VOLUME 6.4 fl (7.4-10.4); RED BLOOD CELL COUNT 2.83 mill/uL (4.7-6.1); RED CELL DISTRIBUTION WIDTH 18.5 % (11.6-14.6)
[2020-10-31 07:58] LABS: CHLORIDE 101 mEq/L (98-107)
[2020-10-31 08:00] VITALS: BP 190/77
[2020-10-31] MEDS ORDERED: CLONIDINE 0.1MG TABLET PO PRN (09:15)
[2020-10-31] MEDS: LISINOPRIL 10MG TABLET PO SCH ×3 (09:40→21:00)
[2020-10-31 12:00] VITALS: BP 158/83
[2020-10-31] MEDS: DILTIAZEM HCL 90MG TABLET PO SCH ×3 (12:49→23:58)
[2020-10-31 14:19] LABS: PLATELET ESTIMATE SLIGHTLY DECREASED
[2020-10-31 14:21] LABS: PLATELET 75 x1000/uL (130-400)
[2020-10-31 16:00] VITALS: BP 166/75
[2020-10-31 16:10] LABS: HEMATOCRIT 31.7 % (42.0-52.0); HEMOGLOBIN 11.2 g/dL (14.0-18.0); MEAN CORPUSCULAR HEMOGLOBIN 40.2 pg (28.0-32.0); MEAN CORPUSCULAR VOLUME 113.8 fL (80.0-94.0); PLATELET 80 x1000/uL (130-400); RED BLOOD CELL COUNT 2.78 mill/uL (4.7-6.1); RED CELL DISTRIBUTION WIDTH 18.5 % (11.6-14.6)
[2020-10-31] MEDS ORDERED: BUPIVACAINE HCL/PF 0.5% (5MG/ML) 10ML ONE (17:23)
[2020-10-31] MEDS ORDERED: LIDOCAINE HCL/EPINEPHRINE 1%-EPI 1:100,000 20 ML VIAL ONE (17:23)
[2020-10-31] MEDS ORDERED: VANCOMYCIN HCL 1 GM/VIAL ONE (17:23)
[2020-10-31] MEDS ORDERED: POLYMYXIN B SULFATE 500000 UNITS/VIAL ONE (17:24)
[2020-10-31 20:00] VITALS: BP 163/73
[2020-11-01] VITALS: BP 155/66
[2020-11-01 04:00] VITALS: BP 161/76
[2020-11-01] MEDS: HYDROCODONE/ACETAMINOPHEN 10/325MG TABLET PO PRN (04:25)
[2020-11-01] MEDS: MORPHINE SULFATE 4 MG/ML CPJ (NOT FOR IM USE) IV PRN ×3 (04:35→19:43)
[2020-11-01] MEDS: DILTIAZEM HCL 90MG TABLET PO SCH (06:50)
[2020-11-01] MEDS: BLOOD SUGAR DIAGNOSTIC STRIP TEST SCH ×4 (06:57→21:25)
[2020-11-01 08:00] VITALS: BP 138/78
[2020-11-01] MEDS: LISINOPRIL 10MG TABLET PO SCH ×2 (08:34→21:00)
[2020-11-01] MEDS: INSULIN LISPRO 100 UNITS/ML SUBCUT SCH ×4 (09:00→21:25)
[2020-11-01 10:16] LABS: CHLORIDE 97 mEq/L (98-107)
[2020-11-01 10:36] LABS: HEMATOCRIT. 33.5 % (42.0-52.0); HEMOGLOBIN. 11.8 g/dL (14.0-18.0); MEAN PLATELET VOLUME 5.7 fl (7.4-10.4); PLATELET 73 x1000/uL (130-400); RED BLOOD CELL COUNT 2.94 mill/uL (4.7-6.1); RED CELL DISTRIBUTION WIDTH 18.8 % (11.6-14.6)
[2020-11-01 12:00] VITALS: BP 132/59
[2020-11-01] MEDS: DILTIAZEM HCL 60MG TABLET PO SCH ×2 (12:25→18:35)
[2020-11-01 16:00] VITALS: BP 145/56
[2020-11-01 16:29] LABS: PLATELET ESTIMATE DECREASED
[2020-11-01] MEDS: ACETAMINOPHEN 325MG TABLET PO PRN (18:35)
[2020-11-01 20:00] VITALS: BP 104/56
[2020-11-02] VITALS (55 sets, daily range): BP systolic 35–132; BP diastolic 27–72
[2020-11-02] MEDS: DILTIAZEM HCL 60MG TABLET PO SCH ×6 (01:11→23:13)
[2020-11-02] MEDS: HYDROCODONE/ACETAMINOPHEN 10/325MG TABLET PO PRN (01:24)
[2020-11-02] MEDS ORDERED: NALOXONE HCL 1 MG/ML 2ML VIAL IV NR (01:45)
[2020-11-02] MEDS: ACETAMINOPHEN 325MG TABLET PO PRN ×2 (02:29→07:34)
[2020-11-02 06:21] LABS: HEMATOCRIT. 32.2 % (42.0-52.0); HEMOGLOBIN. 10.6 g/dL (14.0-18.0); MEAN CORPUSCULAR HEMOGLOBIN 38.4 pg (28.0-32.0); PLATELET 68 x1000/uL (130-400); RED BLOOD CELL COUNT 2.76 mill/uL (4.7-6.1); RED CELL DISTRIBUTION WIDTH 18.5 % (11.6-14.6)
[2020-11-02] MEDS: INSULIN LISPRO 100 UNITS/ML SUBCUT SCH ×4 (08:00→21:00)
[2020-11-02] MEDS: BLOOD SUGAR DIAGNOSTIC STRIP TEST SCH ×4 (08:16→21:24)
[2020-11-02] MEDS: LISINOPRIL 10MG TABLET PO SCH (08:16)
[2020-11-02] MEDS: SODIUM CHLORIDE 0.9% 1,000 ML IV SCH ×2 (09:56→20:41)
[2020-11-02] MEDS ORDERED: SODIUM BICARBONATE 8.4% 1 MEQ/ML 50ML SYR IV ONE (10:30)
[2020-11-02] MEDS ORDERED: CALCIUM CHLORIDE 1GM/10ML SYR IV ONE (10:30)
[2020-11-02] MEDS ORDERED: DEXTROSE 50% WATER 50ML SYRINGE IV ONE (10:30)
[2020-11-02] MEDS ORDERED: SODIUM CHLORIDE 0.9% 1,000 ML IV ONE (10:30)
[2020-11-02] MEDS ORDERED: EPINEPHRINE 0.1MG/ML (1:10,000) 10ML SYR ONE (10:30)
[2020-11-02] MEDS ORDERED: ENOXAPARIN 40MG/0.4ML SYR SUBCUT SCH (11:00)
[2020-11-02 11:35] LABS: CREATINE KINASE 293 IU/L (39-308)
[2020-11-02] MEDS ORDERED: PREDNISONE 10MG TABLET PO SCH (14:45)
[2020-11-02 18:26] LABS: CLARITY URINE CLOUDY (CLEAR); COLOR URINE DARK YELLOW (YELLOW); KETONES URINE TRACE (NEGATIVE); LEUKOCYTE ESTERASE URINE NEGATIVE (NEGATIVE); NITRITE URINE NEGATIVE (NEGATIVE); OCCULT BLOOD URINE NEGATIVE (NEGATIVE); PROTEIN URINE 2+ (NEGATIVE); SPECIFIC GRAVITY URINE 1.024 (1.005-1.030); UROBILINOGEN URINE 0.2 E.U./dL (0.2-1.0)
[2020-11-02] MEDS ORDERED: AMIODARONE HCL 50MG/ML 9ML VIAL IV ONE (18:30)
[2020-11-02] MEDS: NOREPINEPHRINE 32 MG in DEXT 5% WATER 218 ML IV PRN ×2 (18:58→21:32)
[2020-11-02] MEDS: PHENYLEPHRINE 100 MG in DEXT 5% WATER 240 ML IV PRN ×2 (18:59→21:32)
[2020-11-02] MEDS ORDERED: CEFEPIME 1,000 MG in DEXTROSE 5% WATER 50 ML IV SCH (19:00)
[2020-11-02] MEDS ORDERED: VANCOMYCIN 2,000 MG in DEXT 5% WATER 500 ML IV NR (19:00)
[2020-11-02] MEDS ORDERED: SODIUM BICARBONATE 8.4% 1 MEQ/ML 50ML SYR IV NR ×2 (19:30→23:15)
[2020-11-02] MEDS: DOPAMINE 400MG/250ML PREMIX 250 ML IV PRN ×3 (19:34→22:56)
[2020-11-02] MEDS ORDERED: AMIODARONE HCL 900 MG in DEXT 5% WATER 500 ML IV SCH (20:00)
[2020-11-02] MEDS ORDERED: VASOPRESSIN 20 UNIT in SODIUM CHLORIDE 0.9% 99 ML IV PRN (21:15)
[2020-11-02] MEDS ORDERED: SODIUM CHLORIDE 0.45% IV SCH (23:30)
[2020-11-02] MEDS ORDERED: SODIUM BICARBONATE IV SCH (23:30)
[2020-11-02 23:48] LABS: PLATELET ESTIMATE DECREASED
[2020-11-03 00:02] LABS: BG BASE EXCESS -16.1 mmol/L (-2.0-2.0); BG CARBOXYHEMOGLOBIN 0.5 % (0.5-1.5); BG DEOXYHEMOGLOBIN 13.7 % (0.0-5.0); BG FRACTION INSPIRED OXYGEN 100; BG HCO3 ACT 12.6 mmol/L (22.0-26.0); BG METHEMOGLOBIN 0.2 % (0.0-1.5); BG OXYGEN SATURATION 86.2 % (92.0-98.5); BG OXYHEMOGLOBIN 85.6 % (94.0-97.0); BG PCO2 43.5 mmHg (35.0-45.0); BG PH 7.081 (7.350-7.450); BG PO2 74.2 mmHg (75.0-100.0); BG SAMPLE SITE RIGHT FEMORAL; BG TOTAL HEMOGLOBIN 7.2 g/dL (12.0-18.0); BG VENT MODE AC
[2020-11-03 00:15] VITALS: BP 42/33
[2020-11-03] MEDS ORDERED: SODIUM BICARBONATE 8.4% 1 MEQ/ML 50ML SYR IV NR (00:30)
[2020-11-03] MEDS ORDERED: EPINEPHRINE 0.1MG/ML (1:10,000) 10ML SYR ONE (10:44)
[2020-11-03] MEDS ORDERED: SODIUM BICARBONATE 8.4% 1 MEQ/ML 50ML SYR IV ONE (10:44)
[2020-11-03] MEDS ORDERED: CALCIUM CHLORIDE 1GM/10ML SYR IV ONE (10:44)
== END 2020-11-03 00:30 | DRG 871 ==
LOC: ER 18:49 → 6EST 10-30 00:06 → EDBEDREQDT 10-30 00:10 → EDBEDREQTM 10-30 00:10 → EDBEDREQ 10-30 00:10 → ENRESERV 10-30 08:10 → 5EST 11-02 02:18 → MICUNO 11-02 18:25
PROVIDERS: ADMIT Internal Medicine; ATTEND Internal Medicine
PROC: 02HV33Z Insertion of Infusion Device into Superior Vena Cava, Percutaneous Approach (ICD-10-PCS; principal; 2020-11-02)
PROC: B548ZZA Ultrasonography of Superior Vena Cava, Guidance (ICD-10-PCS; 2020-11-02)
PROC: 5A12012 Performance of Cardiac Output, Single, Manual (ICD-10-PCS; 2020-11-02)
PROC: 5A2204Z Restoration of Cardiac Rhythm, Single (ICD-10-PCS; 2020-11-02)
PROC: 5A1935Z Respiratory Ventilation, Less than 24 Consecutive Hours (ICD-10-PCS; 2020-11-02)
PROC: 0BH18EZ Insertion of Endotracheal Airway into Trachea, Via Natural or Artificial Opening Endoscopic (ICD-10-PCS; 2020-11-02)
PROC: 5A12012 Performance of Cardiac Output, Single, Manual (ICD-10-PCS; 2020-11-03)
DX: A41.9 Sepsis, unspecified organism (principal); S72.22XA Displaced subtrochanteric fracture of left femur, initial encounter for closed fracture; J96.00 Acute respiratory failure, unspecified whether with hypoxia or hypercapnia; N17.0 Acute kidney failure with tubular necrosis; E87.1 Hypo-osmolality and hyponatremia; I47.1 Supraventricular tachycardia; I48.92 Unspecified atrial flutter; N39.0 Urinary tract infection, site not specified; D69.6 Thrombocytopenia, unspecified; E11.9 Type 2 diabetes mellitus without complications; D46.9 Myelodysplastic syndrome, unspecified; I10 Essential (primary) hypertension; J44.9 Chronic obstructive pulmonary disease, unspecified; E87.5 Hyperkalemia; F03.90 Unspecified dementia, unspecified severity, without behavioral disturbance, psychotic disturbance, mood disturbance, and anxiety; G89.29 Other chronic pain; I46.9 Cardiac arrest, cause unspecified; I49.01 Ventricular fibrillation; E66.01 Morbid (severe) obesity due to excess calories; K21.9 Gastro-esophageal reflux disease without esophagitis; W18.39XA Other fall on same level, initial encounter; Z20.822 Contact with and (suspected) exposure to COVID-19; Z68.39 Body mass index [BMI] 39.0-39.9, adult; Z79.52 Long term (current) use of systemic steroids; Z82.49 Family history of ischemic heart disease and other diseases of the circulatory system; Z83.3 Family history of diabetes mellitus; Z85.46 Personal history of malignant neoplasm of prostate; Z87.891 Personal history of nicotine dependence; Z71.3 Dietary counseling and surveillance; Z98.1 Arthrodesis status; Z79.899 Other long term (current) drug therapy; Z79.51 Long term (current) use of inhaled steroids; Y93.89 Activity, other specified; Y92.89 Other specified places as the place of occurrence of the external cause; Y99.8 Other external cause status; Z68.38 Body mass index [BMI] 38.0-38.9, adult
CPT/HCPCS: 31500; 36415; 36600; 71045; 73502; 73560; 76770; 76937; 78580; 80048; 80053; 81003; 82375; 82533; 82550; 82805; 82962; 84145; 85025; 85027; 87426; 93005; 93306; 93970; 94002; 99285; C1725; C1769; J0282; J0692; J1265; J1815; J2270; J2310; J2370; J3370; J3490; J7030; J7040; J7050; J7060; A4315